=== PATIENT | male | born 1990 | race American Indian/Alaskan Native ===

== ENCOUNTER 2017-11-14 07:35 | Emergency (ER) | payer MEDICAID ==
[~2017-11-14] VITALS: Ht 170.2 cm; Wt 57.0 kg
[~2017-11-14 07:35] MED LIST: ALBU6.7H INH; ALBU8HFA PO; HYDR-569 PO
[2017-11-14 07:38] VITALS: BP 120/83
== END 2017-11-14 08:08 | disposition home or self-care (01) ==
LOC: ER 07:36
DX: T16.1XXA Foreign body in right ear, initial encounter (principal); F12.90 Cannabis use, unspecified, uncomplicated; J45.909 Unspecified asthma, uncomplicated; Z79.899 Other long term (current) drug therapy; W45.8XXA Other foreign body or object entering through skin, initial encounter; Y93.89 Activity, other specified; Y92.89 Other specified places as the place of occurrence of the external cause; Y99.8 Other external cause status
CPT/HCPCS: 69200; 99284

== ENCOUNTER 2018-02-08 17:27 | Emergency (ER) | payer MEDICAID ==
[~2018-02-08] VITALS: Ht 170.2 cm; Wt 61.5 kg
[~2018-02-08 17:27] MED LIST changes: +HYDR-4383 PO; -HYDR-569 PO
[2018-02-08 17:45] VITALS: BP 145/96
== END 2018-02-08 19:52 | disposition left against medical advice (07) ==
LOC: ER 17:27
DX: R11.0 Nausea (principal); Z53.21 Procedure and treatment not carried out due to patient leaving prior to being seen by health care provider

== ENCOUNTER 2018-03-07 18:43 | Emergency (ER) | payer MEDICAID ==
[~2018-03-07] VITALS: Ht 170.2 cm; Wt 61.0 kg
[2018-03-07] MEDS ORDERED: CLIN300C85 PO (19:23)
[2018-03-07] MEDS ORDERED: ASPI-1264 PO (19:27)
[2018-03-07 19:45] VITALS: BP 124/59
== END 2018-03-07 19:46 | disposition home or self-care (01) ==
LOC: ER 18:44
DX: J34.89 Other specified disorders of nose and nasal sinuses (principal); B95.8 Unspecified staphylococcus as the cause of diseases classified elsewhere; J45.909 Unspecified asthma, uncomplicated; F12.10 Cannabis abuse, uncomplicated
CPT/HCPCS: 99283

== ENCOUNTER 2018-08-26 02:26 | Emergency (ER) | payer MEDICAID ==
[~2018-08-26] VITALS: Ht 170.2 cm; Wt 65.0 kg
[~2018-08-26 02:26] MED LIST changes: -ALBU6.7H INH; -ALBU8HFA PO; +ASPI-1264 PO; -HYDR-4383 PO
[2018-08-26 02:32] VITALS: BP 152/95
== END 2018-08-26 03:21 ==
LOC: ER 02:27
DX: F19.10 Other psychoactive substance abuse, uncomplicated (principal); J45.909 Unspecified asthma, uncomplicated; F12.90 Cannabis use, unspecified, uncomplicated; Z79.82 Long term (current) use of aspirin
CPT/HCPCS: 99283

== ENCOUNTER 2019-10-04 23:42 | Emergency (ER) | payer MEDICAID ==
[~2019-10-04 23:42] MED LIST changes: +ALBU8.5H8 IH
--- NOTE | 2019-10-04 23:51 | NUR ---
called security as pt went into the bathroom as soon as he registered and he is still not out.
== END 2019-10-04 23:55 | disposition left against medical advice (07) ==
LOC: ER 23:42
DX: R09.89 Other specified symptoms and signs involving the circulatory and respiratory systems (principal); Z53.21 Procedure and treatment not carried out due to patient leaving prior to being seen by health care provider

== ENCOUNTER 2020-01-05 15:00 | Emergency (ER) | payer MEDICAID ==
--- NOTE | 2020-01-05 15:57 | NUR ---
Called patient after x3 not in lobby. Patient did not answer at listed phone number. Voicemail was left to come back to ED and be seen.
== END 2020-01-05 15:58 | disposition left against medical advice (07) ==
LOC: ER 15:01
DX: M25.569 Pain in unspecified knee (principal); Z53.21 Procedure and treatment not carried out due to patient leaving prior to being seen by health care provider

== ENCOUNTER 2020-03-05 15:37 | Emergency (ER) | payer MEDICAID ==
[~2020-03-05] VITALS: Ht 170.2 cm; Wt 61.0 kg
[2020-03-05 16:04] VITALS: BP 123/78
[2020-03-05] MEDS ORDERED: BACDS PO (16:39)
[2020-03-05] MEDS ORDERED: CEPH250T PO (16:39)
== END 2020-03-05 17:40 | disposition home or self-care (01) ==
LOC: ER 15:37
DX: L02.416 Cutaneous abscess of left lower limb (principal); L03.011 Cellulitis of right finger; J45.909 Unspecified asthma, uncomplicated; F12.90 Cannabis use, unspecified, uncomplicated; Z72.89 Other problems related to lifestyle; Z59.0 Homelessness; Z79.2 Long term (current) use of antibiotics
CPT/HCPCS: 10061; 99284

== ENCOUNTER 2021-09-15 08:50 | Emergency (ER) | payer MEDICAID ==
[~2021-09-15] VITALS: Ht 170.2 cm; Wt 64.5 kg
[~2021-09-15 08:50] MED LIST changes: +ALBU8.5H17 IH; -ALBU8.5H8 IH
[2021-09-15 09:11] VITALS: BP 137/81
[2021-09-15] MEDS ORDERED: mag hydrox/Alum hydrox/simeth 30ml oral suspension PO ONE (10:20)
[2021-09-15] MEDS ORDERED: sucralfate 1 gm tablet PO ONE (10:20)
[2021-09-15] MEDS ORDERED: LIDOcaine Viscous 15ml cup MM ONE (10:20)
== END 2021-09-15 10:42 | disposition home or self-care (01) ==
LOC: ER 08:51
DX: R10.13 Epigastric pain (principal); F12.10 Cannabis abuse, uncomplicated; F15.10 Other stimulant abuse, uncomplicated; J45.909 Unspecified asthma, uncomplicated; F17.200 Nicotine dependence, unspecified, uncomplicated; Z59.00 Homelessness unspecified; Z87.81 Personal history of (healed) traumatic fracture
CPT/HCPCS: 99283

== ENCOUNTER 2021-11-07 22:57 | Emergency (ER) | payer MEDICAID ==
[~2021-11-07] VITALS: Ht 170.2 cm; Wt 54.5 kg
[2021-11-07] MEDS ORDERED: LORazepam 2 mg/ml vial IM ONE (23:10)
[2021-11-08] MEDS ORDERED: pantoprazole 40 MG vial IV ONE (00:05)
[2021-11-08] MEDS ORDERED: ondansetron/PF 4mg/2ml inj IV ONE (00:05)
[2021-11-08] MEDS ORDERED: normal saline 1000ML IV soln IVB ONE (00:05)
[2021-11-08] MEDS ORDERED: pantoprazole 40MG/NS 100ML BAG 100 ML IV SCH (01:35)
[2021-11-08 02:02] LABS: ALANINE AMINOTRANSFERASE 61 U/L (12-78); ALBUMIN 4.7 G/DL (3.4-5.0); ALBUMIN/GLOBULIN RATIO 1.1 (1.1-1.5); ALKALINE PHOSPHATASE 77 IU/L (46-116); ANION GAP 14 (8-16); ASPARTATE AMINO TRANSFERASE 50 U/L (10-37); BILIRUBIN,TOTAL 0.4 MG/DL (0.1-1.0); BLOOD UREA NITROGEN 32 MG/DL (7-18); BUN/CREATININE RATIO 15.6 (5.4-32.0); CALCIUM 9.5 MG/DL (8.5-10.1); CHLORIDE 104 MMOL/L (99-107); CREATININE 2.05 MG/DL (0.60-1.10); ETHANOL < 0.010 GM/DL (0.0-0.010); GLUCOSE 101 MG/DL (70-104); POTASSIUM 4.1 MMOL/L (3.5-5.1); SODIUM 141 MMOL/L (135-145); TOTAL CARBON DIOXIDE 23.2 MMOL/L (24-32); TOTAL PROTEIN 8.9 G/DL (6.4-8.2); eGFR 38 ML/MIN
[2021-11-08 03:00] VITALS: BP 132/93
[2021-11-08 04:08] LABS: BASOPHILS % (AUTO) 0.3 % (0-1); EOSINOPHILS % (AUTO) 0.1 % (0-6); HEMOGLOBIN 12.6 g/dl (14.0-17.9); LYMPHOCYTES # (AUTO) 1.1 X10'3 (1.1-4.8); LYMPHOCYTES % (AUTO) 10.3 % (21-51); MEAN CORPUSCULAR HEMOGLOBIN 30.7 PG (27.0-31.0); MEAN CORPUSCULAR HGB CONC 34.1 g/dL (33.0-36.5); MEAN CORPUSCULAR VOLUME 90.2 FL (78-98); MEAN PLATELET VOLUME 7.8 FL (7.4-10.4); MONOCYTES # (AUTO) 0.5 X10'3 (0-0.9); MONOCYTES % (AUTO) 5.2 % (2-12); NEUTROPHILS # (AUTO) 8.6 X10'3 (1.8-7.7); NEUTROPHILS % (AUTO) 84.1 % (42-75); PLATELET COUNT 253 X10'3 (140-440); RED CELL DISTRIBUTION WIDTH 13.5 % (11.5-14.5); WHITE BLOOD COUNT 10.2 X10'3 (4.5-11.0)
== END 2021-11-08 05:23 | disposition home or self-care (01) ==
LOC: ER 22:57
DX: R07.89 Other chest pain (principal); J45.909 Unspecified asthma, uncomplicated; F12.90 Cannabis use, unspecified, uncomplicated; F15.20 Other stimulant dependence, uncomplicated; Z59.00 Homelessness unspecified
CPT/HCPCS: 36415; 80053; 80320; 85025; 93005; 96372; 96374; 99284; C9113; J2060; J7030

== ENCOUNTER 2021-11-11 16:07 | Emergency (ER) | payer MEDICAID ==
[~2021-11-11] VITALS: Ht 172.7 cm; Wt 65.9 kg
[2021-11-11 17:13] VITALS: BP 137/88
[2021-11-11 18:58] LABS: BASOPHILS % (AUTO) 0.8 % (0-1); EOSINOPHILS % (AUTO) 0.5 % (0-6); HEMATOCRIT 38.4 % (42.0-52.0); HEMOGLOBIN 12.7 g/dl (14.0-17.9); LYMPHOCYTES % (AUTO) 20.2 % (21-51); MEAN CORPUSCULAR VOLUME 90.8 FL (78-98); MEAN PLATELET VOLUME 7.5 FL (7.4-10.4); MONOCYTES # (AUTO) 0.3 X10'3 (0-0.9); MONOCYTES % (AUTO) 7.2 % (2-12); NEUTROPHILS # (AUTO) 3.4 X10'3 (1.8-7.7); NEUTROPHILS % (AUTO) 71.3 % (42-75); PLATELET COUNT 310 X10'3 (140-440); RED BLOOD COUNT 4.23 X10'6 (4.70-6.10); RED CELL DISTRIBUTION WIDTH 13.5 % (11.5-14.5); WHITE BLOOD COUNT 4.8 X10'3 (4.5-11.0)
[2021-11-11 19:12] LABS: ALANINE AMINOTRANSFERASE 73 U/L (12-78); ALBUMIN/GLOBULIN RATIO 1.2 (1.1-1.5); ALKALINE PHOSPHATASE 65 IU/L (46-116); ANION GAP 6 (8-16); ASPARTATE AMINO TRANSFERASE 75 U/L (10-37); BILIRUBIN,TOTAL 0.5 MG/DL (0.1-1.0); BLOOD UREA NITROGEN 28 MG/DL (7-18); BUN/CREATININE RATIO 21.9 (5.4-32.0); CALCIUM 9.1 MG/DL (8.5-10.1); CHLORIDE 106 MMOL/L (99-107); CREATININE 1.28 MG/DL (0.60-1.10); GLUCOSE 114 MG/DL (70-104); POTASSIUM 4.2 MMOL/L (3.5-5.1); SODIUM 140 MMOL/L (135-145); TOTAL CARBON DIOXIDE 28.4 MMOL/L (24-32); TOTAL PROTEIN 7.3 G/DL (6.4-8.2); eGFR 66 ML/MIN
[2021-11-11 19:16] LABS: LIPASE 91 U/L (73-393)
[2021-11-11] MEDS ORDERED: LIDOcaine Viscous 15ml cup MM ONE (21:10)
[2021-11-11] MEDS ORDERED: mag hydrox/Alum hydrox/simeth 30ml oral suspension PO ONE (21:10)
[2021-11-11] MEDS ORDERED: POLY119P2 PO (22:34)
== END 2021-11-11 23:24 | disposition home or self-care (01) ==
LOC: ER 16:08
DX: R10.84 Generalized abdominal pain (principal); R07.89 Other chest pain; J45.909 Unspecified asthma, uncomplicated; F12.90 Cannabis use, unspecified, uncomplicated; F15.20 Other stimulant dependence, uncomplicated
CPT/HCPCS: 36415; 71045; 74018; 80053; 83690; 83880; 84484; 85025; 93005; 99285

== ENCOUNTER 2021-11-12 21:17 | Emergency (ER) | payer MEDICAID ==
[~2021-11-12] VITALS: Ht 165.1 cm; Wt 61.4 kg
[~2021-11-12 21:17] MED LIST changes: +POLY119P2 PO
[2021-11-12 22:07] VITALS: BP 148/99
== END 2021-11-13 01:53 | disposition left against medical advice (07) ==
LOC: ER 21:18
DX: R10.9 Unspecified abdominal pain (principal); Z53.21 Procedure and treatment not carried out due to patient leaving prior to being seen by health care provider

== ENCOUNTER 2021-11-13 22:25 | Emergency (ER) | payer MEDICAID ==
[~2021-11-13] VITALS: Ht 172.7 cm; Wt 65.9 kg
[2021-11-13 22:34] VITALS: BP 129/91
== END 2021-11-14 01:25 | disposition left against medical advice (07) ==
LOC: ER 22:25
DX: R10.9 Unspecified abdominal pain (principal); Z53.21 Procedure and treatment not carried out due to patient leaving prior to being seen by health care provider

== ENCOUNTER 2021-11-14 15:27 | Emergency (ER) | payer MEDICAID ==
[~2021-11-14] VITALS: Ht 172.7 cm; Wt 61.3 kg
[2021-11-14 15:29] VITALS: BP 124/93
[2021-11-14 15:49] LABS: CLARITY,URINE CLEAR (Clear); COLOR,URINE YELLOW (Yellow); GLUCOSE, URINE NEGATIVE (Neg); KETONES,URINE NEGATIVE (Neg); LEUKOCYTE ESTERASE ,URINE NEGATIVE (Neg); NITRITES, URINE NEGATIVE (Neg); OCCULT BLOOD,URINE NEGATIVE (Neg); PROTEIN,URINE NEGATIVE (Neg); UROBILINOGEN,URINE 0.2 E.U/dL (0.2-1.0)
[2021-11-14 15:50] LABS: UA COLLECTION TYPE CLN CATCH MIDSTREAM
[2021-11-14 16:16] LABS: BASOPHILS % (AUTO) 0.8 % (0-1); EOSINOPHILS # (AUTO) 0.1 X10'3 (0-0.9); EOSINOPHILS % (AUTO) 1.2 % (0-6); HEMOGLOBIN 13.6 g/dl (14.0-17.9); LYMPHOCYTES # (AUTO) 1.6 X10'3 (1.1-4.8); LYMPHOCYTES % (AUTO) 34.2 % (21-51); MEAN CORPUSCULAR HEMOGLOBIN 31.4 PG (27.0-31.0); MEAN CORPUSCULAR VOLUME 92.2 FL (78-98); MEAN PLATELET VOLUME 6.8 FL (7.4-10.4); MONOCYTES # (AUTO) 0.3 X10'3 (0-0.9); MONOCYTES % (AUTO) 7.5 % (2-12); NEUTROPHILS # (AUTO) 2.6 X10'3 (1.8-7.7); NEUTROPHILS % (AUTO) 56.3 % (42-75); PLATELET COUNT 309 X10'3 (140-440); RED BLOOD COUNT 4.34 X10'6 (4.70-6.10); RED CELL DISTRIBUTION WIDTH 13.9 % (11.5-14.5); WHITE BLOOD COUNT 4.6 X10'3 (4.5-11.0)
[2021-11-14 16:35] LABS: ALANINE AMINOTRANSFERASE 65 U/L (12-78); ALBUMIN/GLOBULIN RATIO 1.1 (1.1-1.5); ALKALINE PHOSPHATASE 66 IU/L (46-116); ANION GAP 5 (8-16); ASPARTATE AMINO TRANSFERASE 36 U/L (10-37); BILIRUBIN,TOTAL 0.3 MG/DL (0.1-1.0); BLOOD UREA NITROGEN 20 MG/DL (7-18); BUN/CREATININE RATIO 16.3 (5.4-32.0); CALCIUM 8.9 MG/DL (8.5-10.1); CHLORIDE 105 MMOL/L (99-107); CREATININE 1.23 MG/DL (0.60-1.10); GLUCOSE 107 MG/DL (70-104); LIPASE 157 U/L (73-393); POTASSIUM 4.1 MMOL/L (3.5-5.1); SODIUM 139 MMOL/L (135-145); TOTAL CARBON DIOXIDE 28.6 MMOL/L (24-32); TOTAL PROTEIN 7.5 G/DL (6.4-8.2); eGFR 69 ML/MIN
[2021-11-14 18:02] LABS: URINE AMPHETAMINE SCREEN POSITIVE (Neg); URINE BARBITUATE SCREEN NEGATIVE (Neg); URINE BENZODIAZEPINES SCREEN NEGATIVE (Neg); URINE CANNABINOID SCREEN POSITIVE (Neg); URINE COCAINE SCREEN NEGATIVE (Neg); URINE METHADONE SCREEN NEGATIVE (Neg); URINE OPIATE SCREEN NEGATIVE (Neg); URINE PHENCYCLIDINE SCREEN NEGATIVE (Neg)
== END 2021-11-14 18:18 | disposition home or self-care (01) ==
LOC: ER 15:27
DX: R10.13 Epigastric pain (principal); J45.909 Unspecified asthma, uncomplicated; F12.90 Cannabis use, unspecified, uncomplicated; F15.20 Other stimulant dependence, uncomplicated
CPT/HCPCS: 36415; 74176; 80053; 80305; 81003; 83690; 85025; 99284

== ENCOUNTER 2021-11-18 13:36 | Emergency (ER) | payer MEDICAID ==
[~2021-11-18] VITALS: Ht 170.2 cm; Wt 63.6 kg
[2021-11-18] MEDS ORDERED: ibuprofen tablet 400 MG TABLET PO ONE (15:55)
[2021-11-18 16:15] VITALS: BP 142/86
--- NOTE | 2021-11-18 16:15 | NUR ---
PO challenge tolerated. Pt given water and crackers.
== END 2021-11-18 16:20 | disposition home or self-care (01) ==
LOC: ER 13:37
DX: F15.10 Other stimulant abuse, uncomplicated (principal); J45.909 Unspecified asthma, uncomplicated; F12.10 Cannabis abuse, uncomplicated; B82.9 Intestinal parasitism, unspecified; Z87.81 Personal history of (healed) traumatic fracture; Z79.899 Other long term (current) drug therapy; Z79.82 Long term (current) use of aspirin
CPT/HCPCS: 93005; 99284

== ENCOUNTER 2021-12-25 13:32 | Emergency (ER) | payer MEDICAID ==
[~2021-12-25] VITALS: Ht 170.2 cm; Wt 63.6 kg
[2021-12-25 13:52] VITALS: BP 145/88
== END 2021-12-25 16:00 | disposition home or self-care (01) ==
LOC: ER 13:33
DX: L23.9 Allergic contact dermatitis, unspecified cause (principal); J45.909 Unspecified asthma, uncomplicated; F12.90 Cannabis use, unspecified, uncomplicated; F15.20 Other stimulant dependence, uncomplicated; Z59.00 Homelessness unspecified
CPT/HCPCS: 99282

== ENCOUNTER 2022-01-27 10:11 | Emergency (ER) | payer MEDICAID ==
[~2022-01-27] VITALS: Ht 172.7 cm; Wt 65.9 kg
[2022-01-27 14:26] VITALS: BP 135/94
== END 2022-01-27 15:10 | disposition home or self-care (01) ==
LOC: ER 10:12
DX: S00.83XA Contusion of other part of head, initial encounter (principal); J45.909 Unspecified asthma, uncomplicated; F12.10 Cannabis abuse, uncomplicated; F15.10 Other stimulant abuse, uncomplicated; Z59.00 Homelessness unspecified; Z91.048 Other nonmedicinal substance allergy status; V49.3XXA Car occupant (driver) (passenger) injured in unspecified nontraffic accident, initial encounter; Y93.89 Activity, other specified; Y92.89 Other specified places as the place of occurrence of the external cause; Y99.8 Other external cause status
CPT/HCPCS: 70450; 99284

== ENCOUNTER 2022-03-13 09:07 | Emergency (ER) | payer MEDICAID ==
[~2022-03-13] VITALS: Ht 172.7 cm; Wt 60.0 kg
[2022-03-13 09:20] VITALS: BP 169/110
[2022-03-13] MEDS ORDERED: LORazepam 1 MG tablet PO ONE (10:05)
== END 2022-03-13 10:14 | disposition home or self-care (01) ==
LOC: ER 09:08
DX: R10.13 Epigastric pain (principal); F41.9 Anxiety disorder, unspecified; J45.909 Unspecified asthma, uncomplicated; F12.10 Cannabis abuse, uncomplicated; F15.10 Other stimulant abuse, uncomplicated; Z59.00 Homelessness unspecified; Z91.09 Other allergy status, other than to drugs and biological substances; Z79.899 Other long term (current) drug therapy; Z79.82 Long term (current) use of aspirin
CPT/HCPCS: 99283

== ENCOUNTER 2022-04-09 05:01 | Emergency (ER) | payer MEDICAID ==
[~2022-04-09] VITALS: Ht 170.2 cm; Wt 63.9 kg
[2022-04-09 12:28] LABS: ALANINE AMINOTRANSFERASE 67 U/L (12-78); ALBUMIN 3.9 G/DL (3.4-5.0); ALKALINE PHOSPHATASE 77 IU/L (46-116); ANION GAP 8 (8-16); ASPARTATE AMINO TRANSFERASE 62 U/L (10-37); BILIRUBIN,TOTAL 0.5 MG/DL (0.1-1.0); BLOOD UREA NITROGEN 23 MG/DL (7-18); BUN/CREATININE RATIO 23.5 (5.4-32.0); CALCIUM 9.3 MG/DL (8.5-10.1); CHLORIDE 99 MMOL/L (99-107); CREATININE 0.98 MG/DL (0.60-1.10); GLUCOSE 100 MG/DL (70-104); POTASSIUM 4.6 MMOL/L (3.5-5.1); SODIUM 136 MMOL/L (135-145); TOTAL CARBON DIOXIDE 28.8 MMOL/L (24-32); TOTAL PROTEIN 7.7 G/DL (6.4-8.2); eGFR 89 ML/MIN
[2022-04-09 12:33] LABS: EOSINOPHILS % (AUTO) 0 % (0-6); HEMOGLOBIN 14.8 g/dl (14.0-17.9); MONOCYTES # (AUTO) 0.8 X10'3 (0-0.9)
[2022-04-09 12:35] LABS: BASOPHILS % (AUTO) 0.1 % (0-1); HEMATOCRIT 44.5 % (42.0-52.0); LYMPHOCYTES # (AUTO) 1.2 X10'3 (1.1-4.8); LYMPHOCYTES % (AUTO) 9.9 % (21-51); MEAN CORPUSCULAR HEMOGLOBIN 30.6 PG (27.0-31.0); MEAN CORPUSCULAR HGB CONC 33.4 g/dL (33.0-36.5); MEAN CORPUSCULAR VOLUME 91.7 FL (78-98); MEAN PLATELET VOLUME 7.4 FL (7.4-10.4); NEUTROPHILS # (AUTO) 9.7 X10'3 (1.8-7.7); PLATELET COUNT 270 X10'3 (140-440); RED BLOOD COUNT 4.85 X10'6 (4.70-6.10); RED CELL DISTRIBUTION WIDTH 12.9 % (11.5-14.5); WHITE BLOOD COUNT 11.6 X10'3 (4.5-11.0)
[2022-04-09] MEDS ORDERED: normal saline 1000ML IV soln IVB ONE (16:40)
[2022-04-09] MEDS ORDERED: iohexol 350MG/ML 100ml bottle IV ONE (17:13)
--- NOTE | 2022-04-09 17:25 | NUR ---
PATIENT TO CT.
[2022-04-09 17:44] VITALS: BP 109/70
[2022-04-09] MEDS ORDERED: predniSONE 5mg tablet PO ONE (18:10)
[2022-04-09] MEDS ORDERED: azithromycin 250mg tablet PO ONE (18:10)
[2022-04-09] MEDS ORDERED: PRED10TA23 PO (18:16)
[2022-04-09] MEDS ORDERED: AZIT-83 PO (18:16)
== END 2022-04-09 18:55 | disposition home or self-care (01) ==
LOC: ER 05:02
DX: J20.9 Acute bronchitis, unspecified (principal); J45.909 Unspecified asthma, uncomplicated; F12.90 Cannabis use, unspecified, uncomplicated; F15.90 Other stimulant use, unspecified, uncomplicated; Z59.00 Homelessness unspecified; Z88.8 Allergy status to other drugs, medicaments and biological substances; Z79.82 Long term (current) use of aspirin; Z79.899 Other long term (current) drug therapy
CPT/HCPCS: 36415; 71045; 71275; 80053; 85025; 87070; 87081; 87880; 96360; 99285; J3490; J7030; J7512; Q9967